=== PATIENT | female | born 1960 | race Caucasian/White ===

== ENCOUNTER 2018-04-29 07:07 | Day surgery (SDC) | payer MEDICAID ==
[2018-04-29 10:34] LABS: ADD MAN DIFF? NO
[2018-04-29 10:37] LABS: BASOPHILS % 0.3 % (0.0-2.0); EOSINOPHILS # 0.1 10^3/ul (0.0-0.5); HEMATOCRIT 39.4 % (37.0-47.0); HEMOGLOBIN 13.4 g/dl (12.0-16.0); LYMPHOCYTES # 3.2 10^3/ul (0.8-2.9); LYMPHOCYTES % 47.4 % (15.0-51.0); MEAN CORPUSCULAR HEMOGLOBIN 29.8 pg (29.0-33.0); MEAN CORPUSCULAR VOLUME 87.6 fl (82.0-101.0); MEAN PLATELET VOLUME 9.5 fl (7.4-10.4); MONOCYTE # 0.6 10^3/ul (0.3-0.9); MONOCYTES % 8.7 % (0.0-11.0); NEUTROPHIL # 2.8 10^3/ul (1.6-7.5); NEUTROPHILS % 42.5 % (39.0-77.0); PLATELET COUNT 363 10^3/UL (140-415); RED CELL DISTRIBUTION WIDTH 12.9 % (11.5-14.5)
[2018-04-29 10:37] LABS: WHITE BLOOD COUNT 6.7 10^3/ul (4.8-10.8)
[2018-04-29 10:54] LABS: ALANINE AMINOTRANSFERASE 34 IU/L (13-69); ALBUMIN 4.7 g/dl (3.3-4.9); ALBUMIN/GLOBULIN RATIO 1.51; ALKALINE PHOSPHATASE 93 IU/L (42-121); ANION GAP 13 (5-13); ASPARTATE AMINO TRANSFERASE 41 IU/L (15-46); BILIRUBIN,INDIRECT 0.5 mg/dl (0-1.1); BILIRUBIN,TOTAL 0.5 mg/dl (0.2-1.3); BLOOD UREA NITROGEN 14 mg/dl (7-20); CALCIUM 10.1 mg/dl (8.4-10.2); CARBON DIOXIDE 25 mmol/L (21-31); CHLORIDE 104 mmol/L (97-110); CREATININE 0.53 mg/dl (0.44-1.00); Estimated GFR > 60 mL/min (>60); GLUCOSE 110 mg/dl (70-220); SODIUM 142 mmol/L (135-144); TOTAL PROTEIN 7.8 g/dl (6.1-8.1)
[2018-04-29 11:00] LABS: POTASSIUM 3.4 mmol/L (3.5-5.1)
[2018-04-29] MEDS ORDERED: MIDAZOLAM 1 MG/ML 2 ML INJ ×2 (11:50→12:07)
[2018-04-29] MEDS ORDERED: PROPOFOL 20 ML ×2 (11:50→12:12)
[2018-04-29] MEDS ORDERED: LIDOCAINE 2% (SDV) 5 ML INJ (11:50)
[2018-04-29] MEDS ORDERED: CEFAZOLIN 1 GM INJ (11:58)
[2018-04-29] MEDS ORDERED: FENTAnyl 50 MCG/ML VIAL (11:59)
[2018-04-29] MEDS: BUPIVACAINE 0.5% (SDV) 30 ML INJ (12:09)
[2018-04-29] MEDS ORDERED: DEXAMETHASONE 4 MG/ML 5 ML INJ (12:11)
[2018-04-29] MEDS ORDERED: FAMOTIDINE 20 MG INJ (12:11)
[2018-04-29] MEDS ORDERED: PHENYLephrine (100 MCG/ML) 5ML SYG (12:11)
[2018-04-29] MEDS ORDERED: ONDANSETRON 4 MG INJ (12:11)
[2018-04-29] MEDS ORDERED: EPHEDrine SULFATE 50 MG/5 ML SYG (12:20)
[2018-04-29] MEDS ORDERED: PROCHLORPERAZINE 10 MG INJ IV (12:30)
[2018-04-29] MEDS ORDERED: ONDANSETRON 4 MG INJ IV (12:30)
[2018-04-29] MEDS ORDERED: DIPHENHYDRAMINE 50 MG INJ IV (12:30)
[2018-04-29] MEDS ORDERED: FENTAnyl 50 MCG/ML VIAL IV ×3 (12:30)
[2018-04-29] MEDS ORDERED: MEPERIDINE 25 MG INJ IV (12:30)
[2018-04-29] MEDS ORDERED: HYDROmorphONE 1 MG/5 ML IV SYRINGE IV ×3 (12:30)
[2018-04-29] MEDS: OXYCODONE/ACETAMINOPHEN (5/325) TAB PO (13:35)
== END 2018-04-29 15:20 | disposition home or self-care (01) ==
LOC: SDS 07:07
DX: N60.91 Unspecified benign mammary dysplasia of right breast (principal)
CPT/HCPCS: 19101; 71045; 80053; 85025; 88307; 93005